=== PATIENT | male | born 1950 | race Caucasian/White ===

== ENCOUNTER → 2016-12-19 | Outpatient (CLI) | payer BC | END | disposition home or self-care (01) | LOC: C.LABSPEC 12:14 | PROVIDERS: ATTEND Internal Medicine | DX: Z12.11 Encounter for screening for malignant neoplasm of colon (principal) ==

== ENCOUNTER → 2017-04-23 | Day surgery (SDC) | payer BC ==
[2017-03-12 10:09] VITALS: Ht 182.9 cm; Wt 109.1 kg
[~2017-04-23] VITALS: Ht 182.9 cm; Wt 109.1 kg
[~2017-04-23] MED LIST: AMLO-110 PO; ATOR-22 PO; ATROPINE SULFATE 0.1 MG/ML 5ML SYR IV PRN; DEXAMETHASONE SOD INJ 4 MG/ML VIAL ONE; EpHEDrine SULFATE 50MG/5ML SYR ONE; EpHEDrine SULFATE INJ 50 MG/ML AMP IV PRN; EpHEDrine SULFATE INJ 50 MG/ML AMP ONE; FENTANYL CITRATE INJ 50 MCG/1 ML 2 ML VIAL IV PRN; FENTANYL CITRATE INJ 50 MCG/1 ML 2 ML VIAL ONE; FLM4; HYZ/10015 PO; LIDOCAINE HCL 2% 2 ML VIAL (20MG/ML) ONE; METOCLOPRAMIDE HCL INJ 5 MG/ML 2 ML VIAL ONE; NXM/40 PO; ONDANSETRON INJ 2 MG/ML 2 ML VIAL IV PRN; ONDANSETRON INJ 2 MG/ML 2 ML VIAL ONE; PROPOFOL IV EMULSION 10 MG/ML 20 ML VIAL IV ONE; SODIUM CHLORIDE 0.9% 500ML 500 ML IV ONE; SUCCINYLCHOLINE CHLORIDE 20 MG/ML 10 ML VIAL IV ONE
[2017-04-23 09:56] VITALS: BP 131/70; PULSE 59; TEMP 36.8; O2SAT 95
--- NOTE | 2017-04-23 10:13 | Endo History and Physical ---
History & Physical Date of Service: Apr 23, 2017. Chief Complaint: duoenal nodule Referring Physician: History of Present Illness diuodenal nodule on EGD asymptomatic Past Surgical History Hx Cardiac Surgery: No Hx Abdominal Surgery: No Hx Post-Op Nausea and Vomiting: No Hx Cancer Surgery: Yes (BCC EXCISION) Hx Thoracic Surgery: No Hx Orthopedic: Yes (L4-5 SURGERY) Hx Urinary Tract Surgery: No Social History Smoking Status: Former Smoker Hx Substance Use: No Hx Alcohol Use: No (QUIT 12 YEARS AGO) Allergies Coded Allergies: No Known Allergies (Unverified , 03/12/17) Current Medications Reported Home Medications Medications Dose Route/Sig Max Daily Dose Days Date Category Hyzaar 25MG/100MG (HCTZ/Losartan Potassium) Tab 1 Tab PO DAILY 04/23/17 Reported Lipitor (Atorvastatin Calcium) 20 Mg Tab 20 Mg PO DAILY 04/23/17 Reported Norvasc (Amlodipine Besylate) 5 Mg Tab 5 Mg PO DAILY 04/23/17 Reported Nexium (Esomeprazole Magnesium) 40 Mg Capcr 40 Mg PO DAILY 04/23/17 Reported Tamsulosin HCl 0.4 Mg Cap 04/23/17 Reported Vital Signs Weight (Kilograms): 109.09 Height (Feet): 6 Height (Inches): 0 Date Time Temp Pulse Resp B/P (MAP) Pulse Ox O2 Delivery O2 Flow Rate FiO2 04/23/17 09:56 36.8 59 18 131/70 (90) 95 Room Air Physical Exam General Appearance: WD/WN, no apparent distress Respiratory/Chest: Auscultation: breath sounds normal Cardiovascular: Heart Auscultation: RRR Abdomen: Bowel Sounds: normal Inspection & Palpation: soft, non-distended, no tenderness, guarding & rebound Assessment and Plan EUS with possible bx and FNA
--- NOTE | 2017-04-23 12:28 | [facility] Post Operative Brief Note ---
Immediate Operative Summary Operative Date Apr 23, 2017. Pre-Operative Diagnosis Duodenal Nodule Post-Operative Diagnosis Duodenal lipoma Procedure(s) Performed Upper Endoscopic Ultrasonography Surgeon Dr. Shant Santos Stations Superintendent Surgeon(s) none Estimated Blood Loss 0ml Findings See Below duodenal lipoma Specimens Per Endoscopy Staff Drains None Anesthesia Type General Complication(s) none Disposition Disposition: Recovery Room / PACU
--- NOTE | 2017-04-23 12:39 | Discharge Instructions ---
Endoscopy Patient Instructions Date / Procedure(s) Performed Apr 23, 2017. Other Allergy Information Coded Allergies: No Known Allergies (Unverified , 03/12/17) Discharge Date / Findings Apr 23, 2017. doudenal lipoma Medication Instructions Restart Stopped Medication(s): Reported Home Medications Medications Dose Route/Sig Max Daily Dose Days Date Category Hyzaar 25MG/100MG (HCTZ/Losartan Potassium) Tab 1 Tab PO DAILY 04/23/17 Reported Lipitor (Atorvastatin Calcium) 20 Mg Tab 20 Mg PO DAILY 04/23/17 Reported Norvasc (Amlodipine Besylate) 5 Mg Tab 5 Mg PO DAILY 04/23/17 Reported Nexium (Esomeprazole Magnesium) 40 Mg Capcr 40 Mg PO DAILY 04/23/17 Reported Tamsulosin HCl 0.4 Mg Cap 04/23/17 Reported Reported Home Medications Medications Dose Route/Sig Max Daily Dose Days Date Category Hyzaar 25MG/100MG (HCTZ/Losartan Potassium) Tab 1 Tab PO DAILY 04/23/17 Reported Lipitor (Atorvastatin Calcium) 20 Mg Tab 20 Mg PO DAILY 04/23/17 Reported Norvasc (Amlodipine Besylate) 5 Mg Tab 5 Mg PO DAILY 04/23/17 Reported Nexium (Esomeprazole Magnesium) 40 Mg Capcr 40 Mg PO DAILY 04/23/17 Reported Tamsulosin HCl 0.4 Mg Cap 04/23/17 Reported Provider Instructions Activity Restrictions - No exercising or heavy lifting for 24 hours. - Do not drink alcohol the day of the procedure. - Do not drive a car or operate machinery until the day after the procedure. - Do not make any important decisions or sign important papers in 24 hours after the procedure. Following Day: - Return to full activity which may include returning to work/school. Diet Start your diet with liquids and light foods (jello, soup, juice, toast). Then eat your usual diet if not nauseated. Treatment For Common After Affects For mild abdominal pain, bloating, or excessive gas: - Rest - Eat lightly - Lie on right side Follow-Up Information Follow-up with as scheduled Anesthesia Information What You Should Know You have had a procedure that required some medicine to reduce anxiety and discomfort. This treatment is called moderate sedation. After receiving the treatment, you may be sleepy, but you will be able to breathe on your own. The effects of the treatment may last for several hours. Follow these instructions along with Activity/Diet recommendations noted above: * Do NOT do anything where dizziness or clumsiness would be dangerous. * Rest quietly at home today, then you can be up and about tomorrow. * Have a responsible person stay with you the rest of today. * You may have had an I.V. today. If so, you may take the dressing off later today. Recommendations Call your doctor if: * Trouble breathing * Continuous vomiting for more than 24 hours * Temperature above 101 degrees * Severe abdominal pain or bloating * Pain not relieved by pain medicine ordered * There is increased drainage or redness from any incision * A large amount of rectal bleeding greater than 2-3 tablespoons. (If you had a polyp/s removed or have hemorrhoids, a small amount of blood - from the rectum is to be expected.) * You have any unanswered questions or concerns. IN THE EVENT OF A SERIOUS EMERGENCY, GO TO THE NEAREST EMERGENCY ROOM Your discharge instructions were prepared by provider Shant Santos. Patient Instructions Signature Page Jayy Mauro Patient (or Guardian) Signature/Date: I have read and understand the instructions given to me by my caregivers. Caregiver/RN/Doctor Signature/Date: The above-named patient and/or guardian has received patient instructions on this date. + Original Patient Signature Page (only) stays with chart. Please make copy for patient.
--- NOTE | 2017-04-23 12:44 | Anesthesiology Progress Note ---
Anesthesia Post Op Note Date & Time Apr 23, 2017 at 12:44 Vital Signs Pain Intensity: 0 Vital Signs Past 12 Hours Date Time Temp Pulse Resp B/P (MAP) Pulse Ox O2 Delivery O2 Flow Rate FiO2 04/23/17 12:33 36 88 16 123/68 99 Oxymask 8 04/23/17 09:56 36.8 59 18 131/70 (90) 95 Room Air Notes Mental Status: alert / awake / arousable, participated in evaluation Pt Amnestic to Procedure: Yes Nausea / Vomiting: adequately controlled Pain: adequately controlled Airway Patency, RR, SpO2: stable & adequate BP & HR: stable & adequate Hydration State: stable & adequate Anesthetic Complications: no major complications apparent
--- NOTE | 2017-04-23 13:03 | GI REPORT ---
Procedure Date: 04/23/2017 11:39 AM Procedure: Upper EUS Indications: Abnormal endoscopy Medicines: General Anesthesia Complications: No immediate complications. Estimated blood loss: None. Estimated Blood Loss: Estimated blood loss: none. Procedure: Pre-Anesthesia Assessment: - Prior to the procedure, a History and Physical was performed, and patient medications and allergies were reviewed. The patient's tolerance of previous anesthesia was also reviewed. The risks and benefits of the procedure and the sedation options and risks were discussed with the patient. All questions were answered, and informed consent was obtained. Prior Anticoagulants: The patient has taken no previous anticoagulant or antiplatelet agents. ASA Grade Assessment: II - A patient with mild systemic disease. After reviewing the risks and benefits, the patient was deemed in satisfactory condition to undergo the procedure. After obtaining informed consent, the endoscope was passed under direct vision. Throughout the procedure, the patient's blood pressure, pulse, and oxygen saturations were monitored continuously. The Endosonoscope was introduced through the mouth, and advanced to the duodenum for ultrasound examination from the esophagus, stomach and duodenum. The upper EUS was accomplished without difficulty. The patient tolerated the procedure well. Findings: Endoscopic Finding : The examined esophagus was normal. The entire examined stomach was normal. The duodenal bulb was normal. Endosonographic Finding : The esophagus, stomach and duodenum and adjacent structures were visualized endosonographically. There was no sign of significant endosonographic abnormality in the esophagus. No pathologic lymphadenopathy was identified. Endosonographic images of the stomach were unremarkable. No pathologic lymphadenopathy was identified. There was no sign of significant endosonographic abnormality in the duodenal bulb. No pathologic lymphadenopathy was identified. A round intramural (subepithelial) lesion was found in the second portion of the duodenum. The lesion was hyperechoic. Endosonographically, the lesion appeared to originate from within the deep mucosa (Layer 2) and submucosa (Layer 3). The lesion measured 12 mm (in maximum thickness). The lesion also measured 7 mm in diameter. The outer margins were poorly defined. There was no sign of significant endosonographic abnormality in the ampulla. No pathologic lymphadenopathy was identified. There was no sign of significant endosonographic abnormality in the gallbladder. An unremarkable gallbladder was identified. There was no sign of significant endosonographic abnormality in the pancreatic head, pancreatic body and pancreatic tail. The pancreatic duct was regular in contour. No lymphadenopathy seen. Impression: - Normal esophagus. - Normal stomach. - Normal duodenal bulb. - There was no sign of significant pathology in the esophagus. - Endosonographic images of the stomach were unremarkable. - There was no sign of significant pathology in the duodenal bulb. - An intramural (subepithelial) lesion was found in the second portion of the duodenum. The lesion appeared to originate from within the deep mucosa (Layer 2) and submucosa (Layer 3). Tissue has not been obtained. However, the endosonographic appearance is consistent with a lipoma. - There was no sign of significant pathology in the ampulla. - There was no sign of significant pathology in the gallbladder. - There was no sign of significant pathology in the pancreatic head, pancreatic body and pancreatic tail. - No specimens collected. Recommendation: - Discharge patient to home (ambulatory). - Advance diet as tolerated. - Continue present medications. - Return to referring physician as previously scheduled. - Repeat EGD for Lei's esophagus surveillence as previously recommended MD hSant Lancaster MD 04/23/2017 1:02:49 PM This report has been signed electronically. Note Initiated On: 04/23/2017 11:39 AM I attest to the content of the Intraoperative Record and orders documented therein, exceptions below
[2017-04-23 13:20] VITALS: BP 107/58; PULSE 74; TEMP 36.5; O2SAT 93
[2017-04-23 13:50] VITALS: BP 120/68; PULSE 78; TEMP 36.4; O2SAT 95
== END | disposition home or self-care (01) ==
LOC: C.ACU 09:23
PROVIDERS: ATTEND Internal Medicine Gastroenterology
DX: D17.5 Benign lipomatous neoplasm of intra-abdominal organs (principal); K21.9 Gastro-esophageal reflux disease without esophagitis; J45.909 Unspecified asthma, uncomplicated; I10 Essential (primary) hypertension; E66.9 Obesity, unspecified; Z85.828 Personal history of other malignant neoplasm of skin; Z87.891 Personal history of nicotine dependence